=== PATIENT | female | born 1950 | race Caucasian/White ===

== ENCOUNTER 2021-08-11 07:42 | Inpatient (IN) | payer MEDICARE, OTHER ==
[2021-08-11] MEDS ORDERED: NA CHLORIDE 0.9% 1,000 ML ONE (07:59)
[2021-08-11 08:30] LABS: Absolute Lymphocytes (CBC) 0.5 K/uL (0.7-4.9); Hematocrit 45.8 % (36.0-45.0); Lymphocytes % 4.2 % (15.3-44.8); MPV 7.4 fL (7.6-11.3)
[2021-08-11 08:40] LABS: Albumin 3.2 g/dL (3.4-5.0); Bilirubin Total 0.8 mg/dL (0.2-1.0); Protein, Total 7.5 g/dL (6.4-8.2)
[2021-08-11 08:41] LABS: Potassium 2.9 mmol/L (3.5-5.1)
[2021-08-11] MEDS ORDERED: HYDRALAZINE HCL 20 MG/ML VIAL ONE ×2 (08:41→12:20)
--- NOTE | 2021-08-11 09:07 | RAD REPORT ---
EXAM DESCRIPTION: CT - Head Brain Wo Cont - 08/11/2021 8:59 am CLINICAL HISTORY: CONFUSED COMPARISON: No comparisons TECHNIQUE: Axial 5 mm thick images of the head were obtained without IV contrast. All CT scans are performed using dose optimization technique as appropriate and may include automated exposure control or mA/KV adjustment according to patient size. FINDINGS: No intracranial hemorrhage is present. No acute cortical based infarction is seen. There i s no cortical edema or sulcal effacement seen. Patient has underlying mild atrophy for age. Ventricle s are in proportion to the amount of volume loss. No abnormal extra-axial fluid collections. Chronic ischemic changes seen in the cerebral white matter and basal ganglia. Slightly more pronounced dimini shed attenuation is present in the posterolateral aspect of the lentiform nucleus and external capsul e on the left. Thalamus chronic ischemic changes evident. Mastoid air cells and visualized portions of the paranasal sinuses are clear. No acute bony findings. Patient has normal variant hyperostosis frontalis interna. No globe or orbita l content abnormality seen. IMPRESSION: No intracranial hemorrhage identified. No acute infarction at the cortical level identif iable. Patient has chronic ischemic change in the cerebral white matter, basal ganglia and thalamic tissues. Chronic ischemic changes can mask nonhemorrhagic acute infarction. MR brain followup can be obtained if there is ongoing concern for acute ischemia.
[2021-08-11] MEDS ORDERED: KCL IV ONE (09:15)
--- NOTE | 2021-08-11 09:16 | RAD REPORT ---
EXAM DESCRIPTION: CT - Abdomen Pelvis W Contrast - 08/11/2021 8:59 am CLINICAL HISTORY: ABD PAIN COMPARISON: No comparisons TECHNIQUE: Biphasic, helical CT imaging of the abdomen and pelvis was performed following 100 ml non -ionic IV contrast. No oral contrast administered. All CT scans are performed using dose optimization technique as appropriate and may include automated exposure control or mA/KV adjustment according to patient size. FINDINGS: Bilateral breast implants are in place with dense calcifications of the fibrous capsule. B oth implants show rupture findings contained by the fibrous capsule. No acute lung parenchymal proces s. No pneumothorax or pleural effusion. No pericardial effusion. The liver, spleen, and pancreas show no suspicious findings. Gallbladder is absent. No abnormal bilia ry tree dilatation. Renal function is symmetric. Areas of cortical thinning are present. The slight heterogeneity of the cortical tissues believed to be. Age related parenchymal volume loss. Given the right flank pain hist ory, the possibility of right-sided pyelonephritis cannot be excluded. There is no perinephric strand ing. No hydronephrosis or obstructing calculus identifiable. No solid mass lesion of either kidney. M ostly contracted urinary bladder shows no gross abnormality. Right adrenal gland is unremarkable. A 2 centimeter low-density mass of the left adrenal gland shows adenoma characteristics. A small atrophi c uterus is present. No suspicious ovarian finding. Small hiatal hernia is present. Surgical clips are present near the GE junction and there are postsur gical changes to the stomach. Fluid-filled stomach is present. No gastric wall thickening or gastric wall mass identifiable. Duodenum is unremarkable. The proximal most loops of jejunum show significant circumferential wall thickening and edema. A mass lesion is not identified. Distal jejunum and ileum show no suspicious findings. Gallbladder is absent by history. Patient has mild sigmoid diverticulos is without diverticulitis. Moderate stool volume is present throughout most of the colon. A primary c olon process is not identified. Small amount of free fluid is present in the dependent portion the pelvis likely reactive fluid from the jejunum process. No free air or pneumatosis. No mass or bulky lymphadenopathy. Severe bilateral hip joint degenerative changes are present. Degenerative changes are present through out the spine. No pathologic bone process seen. Mild wedge compression of L1 is present probably care consultant nba. IMPRESSION: Prominent circumferential wall thickening of the proximal jejunum. No focal mass lesion , obstruction, pneumatosis or other emergent finding. Jejunum findings are nonspecific and may represent a nonspecific ileitis or inflammatory bowel proces s. Heterogeneity of the renal parenchymal more prominent on the right. This is believed to be age relate d cortical thinning rather than pyelonephritis. Correlation can be made with any UA abnormality. No c ystitis findings.
[2021-08-11 09:31] LABS: Urine Blood Trace-intact (Negative); Urine Glucose 2+ (Negative); Urine Protein 1+ (Negative)
[2021-08-11 10:02] LABS: Urine Bacteria 20-50 /HPF (<20); Urine RBC <5 /HPF (NONE SEEN)
[2021-08-11] MEDS ORDERED: CEFTRIAXONE 1000 MG/VIAL ONE (10:05)
[2021-08-11 10:49] LABS: Blood Morphology Comment NOT SEEN (NOT SEEN); Platelet Estimate ADEQ; White Blood Cell Scan OK (OK)
--- NOTE | 2021-08-11 10:50 | EDPHYS ---
Physician Documentation [facility] Name: Tana Aguilar Age: 70 yrs Sex: Female : 1950 Arrival Date: 08/11/2021 Time: 07:47 Bed 5 Private MD: ED Physician Estela Varela HPI: 08/11 10:47 This 70 yrs old Female presents to ER via Wheelchair with complaints of Urinary ma2 Problem, confusion, Weakness. 10:47 Onset: The symptoms/episode began/occurred gradually, 2 day(s) ago. Associated signs ma2 and symptoms: Pertinent negatives: dizziness, nausea, paresthesias, seizure, loss of vision, weakness. Severity of symptoms: At their worst the symptoms were mild in the emergency department the symptoms are unchanged. Current symptoms: confusion. Historical: - Allergies: 08:09 No Known Allergies; ll1 - Home Meds: 14:45 Eliquis oral [Active]; Cymbalta oral [Active]; Ambien Oral [Active]; levothyroxine oral vg1 [Active]; Hydrocodone-Acetaminophen Oral [Active]; - PMHx: 08:00 Hypertensive disorder; Diabetes mellitus; ll1 08:09 A fib; ll1 - PSHx: 08:09 B knee SX; R ankle SX; ll1 - Immunization history:: Client reports receiving the 2nd dose of the Covid vaccine. - Social history:: Smoking status: Patient denies any tobacco usage or history of. - Family history:: not pertinent. ROS: 10:47 Constitutional: Negative for fever, chills, and weight loss, Eyes: Negative for injury, ma2 pain, redness, and discharge. 10:47 All other systems are negative. Exam: 10:47 Constitutional: This is a well developed, well nourished patient who is awake, alert, ma2 and in no acute distress. ENT: Nares patent. No nasal discharge, no septal abnormalities noted. Tympanic membranes are normal and external auditory canals are clear. Oropharynx with no redness, swelling, or masses, exudates, or evidence of obstruction, uvula midline. Mucous membranes moist. Neck: Trachea midline, no thyromegaly or masses palpated, and no cervical lymphadenopathy. Supple, full range of motion without nuchal rigidity, or vertebral point tenderness. No Meningismus. Chest/axilla: Normal chest wall appearance and motion. Nontender with no deformity. No lesions are appreciated. Cardiovascular: Regular rate and rhythm with a normal S1 and S2. No gallops, murmurs, or rubs. Normal PMI, no JVD. No pulse deficits. Respiratory: Lungs have equal breath sounds bilaterally, clear to auscultation and percussion. No rales, rhonchi or wheezes noted. No increased work of breathing, no retractions or nasal flaring. Abdomen/GI: Soft, non-tender, with normal bowel sounds. No distension or tympany. No guarding or rebound. No evidence of tenderness throughout. Back: No spinal tenderness. No costovertebral tenderness. Full range of motion. Skin: Warm, dry with normal turgor. Normal color with no rashes, no lesions, and no evidence of cellulitis. MS/ Extremity: Pulses equal, no cyanosis. Neurovascular intact. Full, normal range of motion. Neuro: Awake and alert, GCS 15, oriented to person, place, time, and situation. Cranial nerves II-XII grossly intact. Motor strength 5/5 in all extremities. Sensory grossly intact. Cerebellar exam normal. Normal gait. Vital Signs: 08:00 BP 194 / 116; Pulse 82; Resp 18; Temp 97.3; Pulse Ox 100% ; ll1 08:00 BP 206 / 105; Pulse 70; Resp 17; Pulse Ox 100% ; vg1 09:00 BP 164 / 51; Pulse 83; Resp 17; Pulse Ox 100% ; vg1 09:30 BP 165 / 52; Pulse 87; Resp 16; Pulse Ox 100% ; vg1 10:15 BP 176 / 58; Pulse 83; Resp 16; Pulse Ox 100% ; vg1 11:00 BP 190 / 77; Pulse 81; Resp 16; Pulse Ox 100% on R/A; vg1 12:00 BP 197 / 97; Pulse 80; Resp 16; Pulse Ox 100% on R/A; vg1 12:49 BP 159 / 62; Pulse 90; Resp 16; Pulse Ox 100% ; vg1 14:59 Weight 74.84 kg; vg1 19:45 BP 162 / 60; Pulse 81; Resp 16; Temp 98.4(O); Pulse Ox 100% on R/A; Pain 0/10; st1 MDM: 08:00 Patient medically screened. ma2 10:47 Data reviewed: vital signs, nurses notes, EMS record. Test interpretation: by ED tx2 physician or midlevel provider: ECG, plain radiologic studies. Counseling: I had a detailed discussion with the patient and/or guardian regarding: the historical points, exam findings, and any diagnostic results supporting the discharge/admit diagnosis, the presence of at least one elevated blood pressure reading (>120/80) during this emergency department visit, the need for outpatient follow up. Counseling: I had a detailed discussion with the patient and/or guardian regarding: the need for further work-up and treatment in the hospital. Response to treatment: the patient's symptoms have mildly improved after treatment, the patient's symptoms have markedly improved after treatment. 08/11 07:49 Order name: CBC with Diff [facility] 08/11 07:49 Order name: CMP; Complete Time: 08:49 [facility] 08/11 07:49 Order name: Lipase; Complete Time: 08:49 [facility] 08/11 07:49 Order name: Urine Microscopic Only; Complete Time: 10:38 [facility] 08/11 08:36 Order name: SARS-COV-2 RT PCR (Document "Date of Onset" if Symptomatic); Complete Time: [facility] 10:38 08/11 09:31 Order name: Urine Dipstick-Ancillary; Complete Time: 09:39 [facility] 08/11 08:07 Order name: CT Head Brain wo Cont; Complete Time: 09:17 [facility] 08/11 08:07 Order name: CT Abd/Pelvis - IV Contrast Only; Complete Time: 09:17 [facility] 08/11 10:03 Order name: Urine Culture [facility] 08/11 10:49 Order name: CBC Smear Scan [facility] 08/11 11:43 Order name: Lactate [facility] 08/11 11:56 Order name: Blood Culture [facility] 08/11 11:56 Order name: Hemoglobin A1c [facility] 08/11 17:15 Order name: MRI [facility] 08/11 07:49 Order name: IV Saline Lock; Complete Time: 08:16 [facility] 08/11 07:49 Order name: Labs collected and sent; Complete Time: 08:16 [facility] 08/11 07:49 Order name: Urine Dipstick-Ancillary (obtain specimen); Complete Time: 09:31 [facility] 08/11 11:05 Order name: Diet Heart Healthy; Complete Time: 11:05 vg1 Administered Medications: 08:16 Drug: NS 0.9% 1000 ml Route: IV; Rate: 1 bolus; Site: right antecubital; vg1 11:00 Follow up: IV Status: Completed infusion; IV Intake: 1000ml vg1 08:40 Drug: hydrALAZINE 10 mg Route: IVP; Site: right antecubital; vg1 09:27 Follow up: Response: No adverse reaction; Blood pressure is lowered vg1 09:26 Drug: Potassium Chloride 10 mEq Route: IV; Rate: calculated rate; Site: right vg1 antecubital; 11:30 Follow up: IV Status: Completed infusion; IV Intake: 50ml vg1 10:17 Drug: Rocephin (cefTRIAXone) 1 grams Route: IV; Rate: calculated rate; Site: right vg1 antecubital; 11:05 Follow up: Response: No adverse reaction; IV Status: Completed infusion vg1 12:19 Drug: hydrALAZINE 10 mg Route: IVP; Site: right antecubital; vg1 14:48 Follow up: Response: No adverse reaction; Blood pressure is lowered vg1 Disposition Summary: 08/11/21 10:49 Hospitalization Ordered Hospitalization Status: Observation ma2 Provider: Prince karissa Dumont Condition: Stable ma2 Problem: new ma2 Symptoms: are unchanged ma2 Bed/Room Type: Standard [facility] Location: Telemetry/MedSurg (observation)(08/11/21 18:30) eb Room Assignment: [facility](08/11/21 18:30) eb Diagnosis - UTI/ Urinary tract infection, site not specified ma2 - Altered mental status, unspecified ma2 Forms: - Medication Reconciliation Form ma2 - SBAR form ma2 Signatures: Dispatcher [employer] Tanya Branham RN RN aa5 sEtela Varela MD MD ma2 Bree Alejandro Victoria, RN RN vg1 Senait Menendez RN RN ll1 Corrections: (The following items were deleted from the chart) 14:26 10:49 Telemetry/MedSurg (observation) ma2 aa5 14:26 10:49 ma2 aa5 18:30 14:26 [facility] ER HOLD aa5 eb 18:30 14:26 ERHOLD- aa5 eb 18:30 18:30 204 eb eb
--- NOTE | 2021-08-11 10:50 | ER ---
Nurse's Notes [facility] Name: Tana Aguilar Age: 70 yrs Sex: Female : 1950 Arrival Date: 08/11/2021 Time: 07:47 Bed 5 Private MD: Diagnosis: UTI/ Urinary tract infection, site not specified;Altered mental status, unspecified Presentation: 08/11 08:00 Chief complaint: Patient states: Confusion started Saturday. Feels weak, tired, sweaty at ll1 times since. No fever. R sided back pain so she thought she might have kidney infection. Coronavirus screen: Vaccine status: Patient reports receiving the 2nd dose of the covid vaccine. Client denies travel out of the [place] in the last 14 days. fatigue, Client presents with at least one sign or symptom that may indicate coronavirus-19. Standard/surgical mask placed on the client. Ebola Screen: Patient denies travel to an Ebola-affected area in the 21 days before illness onset. No acute neurological deficit is noted. Initial Sepsis Screen: Does the patient meet any 2 criteria? No. Patient's initial sepsis screen is negative. Does the patient have a suspected source of infection? Yes: Dysuria/Frequency/Urgency/UTI. Risk Assessment: Do you want to hurt yourself or someone else? Patient reports no desire to harm self or others. Onset of symptoms was August 06, 2021. 08:00 Method Of Arrival: Wheelchair ll1 08:00 Acuity: NEREYDA 3 ll1 Triage Assessment: 08:00 The onset of the patients symptoms was more than six hours ago. General: Appears ill, ll1 Behavior is calm, cooperative, appropriate for age. Pain: Complains of pain in R back Quality of pain is described as aching. Neuro: Reports confusion since Saturday. : Reports pain in right in lower back. Stroke Activation: Symptom onset > 6 hours Physician: Stroke Attending; Name: ; Notified At: ; Arrived At: Physician: Chief Stroke Resident; Name: ; Notified At: ; Arrived At: Physician: Stroke Resident; Name: ; Notified At: ; Arrived At: Physician: ED Attending; Name: ; Notified At: ; Arrived At: Physician: ED Resident; Name: ; Notified At: ; Arrived At: Historical: - Allergies: 08:09 No Known Allergies; ll1 - Home Meds: 14:45 Eliquis oral [Active]; Cymbalta oral [Active]; Ambien Oral [Active]; levothyroxine oral vg1 [Active]; Hydrocodone-Acetaminophen Oral [Active]; - PMHx: 08:00 Hypertensive disorder; Diabetes mellitus; ll1 08:09 A fib; ll1 - PSHx: 08:09 B knee SX; R ankle SX; ll1 - Immunization history:: Client reports receiving the 2nd dose of the Covid vaccine. - Social history:: Smoking status: Patient denies any tobacco usage or history of. - Family history:: not pertinent. Screenin:28 Abuse screen: Denies threats or abuse. Nutritional screening: No deficits noted. vg1 Tuberculosis screening: No symptoms or risk factors identified. Fall Risk No fall in past 12 months (0 pts). No secondary diagnosis (0 pts). IV access (20 points). Ambulatory Aid- None/Bed Rest/Nurse Assist (0 pts). Gait- Normal/Bed Rest/Wheelchair (0 pts) Mental Status- Oriented to own ability (0 pts). Total Isidro Fall Scale indicates No Risk (0-24 pts). Assessment: 07:55 General: Appears in no apparent distress. comfortable, Behavior is calm, cooperative. vg1 Pain: Complains of pain in Right flank Pain currently is 5 out of 10 on a pain scale. Pain began SaturdayAugust 06. Neuro: Level of Consciousness is awake, alert, obeys commands, Oriented to person, place, time, situation. Cardiovascular: Patient's skin is warm and dry. Respiratory: Airway is patent Respiratory effort is even, unlabored. GI: No signs and/or symptoms were reported involving the gastrointestinal system. : Reports urinary frequency, Denies burning with urination. EENT: No signs and/or symptoms were reported regarding the EENT system. Derm: Skin is intact, is healthy with good turgor. Musculoskeletal: Circulation, motion, and sensation intact. 09:32 Reassessment: Patient appears in no apparent distress at this time. No changes from vg1 previously documented assessment. Patient and/or family updated on plan of care and expected duration. Pain level reassessed. Patient is alert, oriented x 3, equal unlabored respirations, skin warm/dry/pink. 10:27 Reassessment: Patient appears in no apparent distress at this time. No changes from vg1 previously documented assessment. Patient and/or family updated on plan of care and expected duration. Pain level reassessed. Patient is alert, oriented x 3, equal unlabored respirations, skin warm/dry/pink. 12:14 Reassessment: Received VO from Dr Varela to administer Hydralazine 10 mg IVP x1. vg1 Vital Signs: 08:00 BP 194 / 116; Pulse 82; Resp 18; Temp 97.3; Pulse Ox 100% ; ll1 08:00 BP 206 / 105; Pulse 70; Resp 17; Pulse Ox 100% ; vg1 09:00 BP 164 / 51; Pulse 83; Resp 17; Pulse Ox 100% ; vg1 09:30 BP 165 / 52; Pulse 87; Resp 16; Pulse Ox 100% ; vg1 10:15 BP 176 / 58; Pulse 83; Resp 16; Pulse Ox 100% ; vg1 11:00 BP 190 / 77; Pulse 81; Resp 16; Pulse Ox 100% on R/A; vg1 12:00 BP 197 / 97; Pulse 80; Resp 16; Pulse Ox 100% on R/A; vg1 12:49 BP 159 / 62; Pulse 90; Resp 16; Pulse Ox 100% ; vg1 14:59 Weight 74.84 kg; vg1 19:45 BP 162 / 60; Pulse 81; Resp 16; Temp 98.4(O); Pulse Ox 100% on R/A; Pain 0/10; st1 ED Course: 07:47 Patient arrived in ED. as 07:48 Estela Varela MD is Attending Physician. hi2 07:54 Tana Taylor, RN is Primary Nurse. vg1 07:54 Arm band placed on Patient placed in an exam room, on a stretcher. ll1 08:02 Triage completed. ll1 08:13 Initial lab(s) drawn, by ut, sent to lab. Inserted saline lock: 20 gauge in right vg1 antecubital area, using aseptic technique. Blood collected. 08:29 Patient has correct armband on for positive identification. Bed in low position. Call [facility] light in reach. Side rails up X 1. Adult w/ patient. 08:59 CT Head Brain wo Cont In Process Unspecified. EDMS 08:59 CT Abd/Pelvis - IV Contrast Only In Process Unspecified. EDMS 10:49 Prince Dumont MD is Hospitalizing Provider. ma2 11:18 Pillow given. em1 12:20 Lactate Sent. em1 12:20 First set of blood cultures drawn by me. em1 14:48 No provider procedures requiring assistance completed. Patient admitted, IV remains in vg1 place. 19:11 Primary Nurse role handed off by Tana Taylor RN mw2 19:38 Makenna Fermin RN is Primary Nurse. st1 19:38 the charge nurse states there was no nurse assigned to the room. st1 20:22 Report was called to SERA King. All questions and concerns have been addressed. st1 Administered Medications: 08:16 Drug: NS 0.9% 1000 ml Route: IV; Rate: 1 bolus; Site: right antecubital; vg1 11:00 Follow up: IV Status: Completed infusion; IV Intake: 1000ml vg1 08:40 Drug: hydrALAZINE 10 mg Route: IVP; Site: right antecubital; vg1 09:27 Follow up: Response: No adverse reaction; Blood pressure is lowered vg1 09:26 Drug: Potassium Chloride 10 mEq Route: IV; Rate: calculated rate; Site: right vg1 antecubital; 11:30 Follow up: IV Status: Completed infusion; IV Intake: 50ml vg1 10:17 Drug: Rocephin (cefTRIAXone) 1 grams Route: IV; Rate: calculated rate; Site: right vg1 antecubital; 11:05 Follow up: Response: No adverse reaction; IV Status: Completed infusion vg1 12:19 Drug: hydrALAZINE 10 mg Route: IVP; Site: right antecubital; vg1 14:48 Follow up: Response: No adverse reaction; Blood pressure is lowered vg1 Intake: 11:00 IV: 1000ml; Total: 1000ml. vg1 11:30 IV: 50ml; Total: 1050ml. vg1 Outcome: 10:49 Decision to Hospitalize by Provider. ma2 14:47 Admitted to ER Hold. Please see [facility] for further documentation. vg1 14:47 Condition: good 14:47 Instructed on the need for admit. 20:48 Patient left the ED. bb Signatures: Dispatcher [employer] Delfina Travis Brenda, RN Lennox Ellison em1 Estela Varela MD MD ma2 Julito, Shemar 2 Tana Taylor RN RN vg1 Senait Menendez RN RN ll1 Makenna Fermin RN RN st1 Corrections: (The following items were deleted from the chart) 12:29 12:29 Lactate drawn and sent. em1 em1 19:48 19:45 Pulse 81bpm; Resp 16bpm; Pulse Ox 100% RA; Temp 98.4F Oral; Pain 0/10; st1 st1
--- NOTE | 2021-08-11 11:51 | P.HP ---
Certification for Inpatient Patient admitted to: Inpatient With expected LOS: >2 Midnights Practitioner: I am a practitioner with admitting privileges, knowledge of patient current condition, hospital course, and medical plan of care. Services: Services provided to patient in accordance with Admission requirements found in Title 42 Section 412.3 of the Code of Federal Regulations Patient History Date of Service: 08/11/21 Reason for admission: Generalized weakness History of Present Illness: Patient is a 70 year old female with a PMH of HTN, Atrial fibrillation on eliquis. She presents to the ER for evaluation of generalized weakness and confusion for the past 2 days. She is visiting her son from [place], [place] and has been here for the past 3 months. She reports having dysuria during this time. She has been compliant with her medications. She arrived in the ER severely hypertensive with SBP in 200s. She required IV hydralazine. Workup here is suggestive of UTI. Physical Examination - Physical Exam General: Cooperative, Other (lethargic) HEENT: Atraumatic Respiratory: Clear to auscultation bilaterally, Normal air movement Cardiovascular: Normal S1 S2, Edema, Irregular heart rate/rhythm Gastrointestinal: Soft and benign, Non-distended, No tenderness Neurological: Normal speech, Normal affect - Studies Laboratory Data (last 24 hrs) 08/11/21 08:13: Sodium 133 L, Potassium 2.9 L*, BUN 21 H, Creatinine 1.36 H, Glucose 329 H, Total Bilirubin 0.8, AST 6 L, ALT 16, Alkaline Phosphatase 137 H, Lipase 60 L 08/11/21 08:13: WBC 12.50 H, Hgb 15.1 H, Hct 45.8 H, Plt Count 420 H Assessment and Plan - Problems (Diagnosis) (1) UTI (urinary tract infection) Current Visit: Yes Status: Acute (2) Hypertensive urgency Current Visit: Yes Status: Acute (3) Atrial fibrillation Current Visit: Yes Status: Acute (4) Generalized weakness Current Visit: Yes Status: Acute - Advance Directives Does patient have a Living Will: No Does patient have a Durable POA for Healthcare: No Physician Review Additional Text: Assessment Patient is a 70 year old female currently being admitted for UTI after she presented with generalized weakness. Her urine analysis was positive. She was severely hypertensive on presentation and required IV hydralazine. UTI Hypertensive urgency Acute encephalopathy Atrial fibrillation Generalized weakness PLAN: Admit inpatient with telemetry MRI brain to r/o PRESS vs CVA Will obtain a TTE Continue Ceftriaxone for UTI Start LR infusion Follow up urine cultures Start insulin sliding scale Follow up HbA1c She will need PT/OT BP control Will resume home medications once reconciled
[2021-08-11] MEDS ORDERED: D50W 25 GM/50 ML SYRINGE IV PRN (15:56)
[2021-08-11] MEDS ORDERED: GLUCAGON 1 MG/VIAL IM PRN (15:56)
[2021-08-11] MEDS: Ringers Lactate 1,000 ML IV SCH ×2 (15:56→23:56)
[2021-08-11] MEDS ORDERED: D10W 125 ML IV PRN (16:00)
[2021-08-11] MEDS: INSULIN -REGULAR HUMAN 50 UNIT/0.5 ML ML SQ SCH ×2 (16:30→21:00)
--- NOTE | 2021-08-11 17:14 | RAD REPORT ---
EXAM DESCRIPTION: MRI - Brain Wo Cont - 08/11/2021 4:53 pm CLINICAL HISTORY: Acute encephalopathy Headache, drowsiness COMPARISON: Head Brain Wo Cont dated 08/11/2021 TECHNIQUE: Multi-sequence, multiplanar MR imaging of the brain was performed without contrast. FINDINGS: No intracranial hemorrhage, hydrocephalus or extra-axial fluid collections.Mild brain atro phy with mild periventricular and deep white matter chronic microvascular ischemic changes. No edema or shift of midline structures. No findings to suspect brain mass. DWI is negative for acute CVA. Midline structures are normally formed. Mastoid air cells and paranasal sinuses are clear. IMPRESSION: No acute or aggressive intracranial abnormalities.
[2021-08-11 22:10] VITALS: BMI 25.8
[2021-08-11] MEDS ORDERED: ZOLPIDEM TARTRATE 5 MG TABLET PO PRN (23:29)
[2021-08-11] MEDS: HYDRALAZINE HCL 20 MG/ML VIAL IV PRN (23:46)
[2021-08-12 06:52] LABS: Absolute Lymphocytes (CBC) 2.2 K/uL (0.7-4.9); Hematocrit 40.9 % (36.0-45.0); Lymphocytes % 24.8 % (15.3-44.8); MPV 7.3 fL (7.6-11.3)
[2021-08-12 07:14] LABS: Potassium 2.8 mmol/L (3.5-5.1)
[2021-08-12] MEDS: INSULIN -REGULAR HUMAN 50 UNIT/0.5 ML ML SQ SCH ×4 (07:30→21:00)
[2021-08-12] MEDS: Ringers Lactate 1,000 ML IV SCH ×2 (07:56)
[2021-08-12] MEDS ORDERED: CEFTRIAXONE 1000 MG/VIAL ONE (08:13)
--- NOTE | 2021-08-12 08:26 | P.PN ---
Subjective Date of Service: 08/12/21 Chief Complaint: Generalized weakness Subjective: Improving (Persistenlty hypokalemic, however. BP is still uncontrolled) Physical Examination - Vital Signs Temperature: 97.3 F Blood Pressure: 180/86 Pulse: 94 Respirations: 19 Pulse Ox (%): 97 - Physical Exam General: Alert, In no apparent distress, Cooperative HEENT: Atraumatic, Normocephalic Respiratory: Clear to auscultation bilaterally, Normal air movement Cardiovascular: Normal S1 S2, Irregular heart rate/rhythm Gastrointestinal: Soft and benign, Non-distended, No tenderness Neurological: Normal speech, Normal affect - Studies Laboratory Data (last 24 hrs) 08/11/21 08:13: Sodium 133 L, Potassium 2.9 L*, BUN 21 H, Creatinine 1.36 H, Glucose 329 H, Total Bilirubin 0.8, AST 6 L, ALT 16, Alkaline Phosphatase 137 H, Lipase 60 L 08/11/21 08:13: WBC 12.50 H, Hgb 15.1 H, Hct 45.8 H, Plt Count 420 H Assessment And Plan - Current Problems (Diagnosis) (1) UTI (urinary tract infection) Current Visit: Yes Status: Acute (2) Hypertensive urgency Current Visit: Yes Status: Acute (3) Atrial fibrillation Current Visit: Yes Status: Acute (4) Generalized weakness Current Visit: Yes Status: Acute Physician Review Additional Text: Assessment Patient is a 70 year old female currently being admitted for UTI after she presented with generalized weakness. Her urine analysis was positive. She was severely hypertensive on presentation and required IV hydralazine. UTI Bacteremia Hypokalemia Hypertensive urgency Acute encephalopathy Atrial fibrillation Generalized weakness PLAN: Hypokalemia possibly contributing to weakness Will replace with 80 mEq MRI brain negative for PRESS vs CVA Blood cx positive for G+cocci in clusters Repeat blood cx sent Follow up TTE Continue Ceftriaxone for UTI. Follow up Ucx DC IVF Continue insulin sliding scale PT/OT before discharge BP control DVT ppx Will resume home medications once reconciled 08/12/21 16:15
[2021-08-12] MEDS: METOPROLOL TAR 25 MG TAB PO SCH ×2 (08:52→18:08)
[2021-08-12 08:53] LABS: Magnesium 1.8 mg/dL (1.8-2.4); T3 Free 1.81 pg/mL (2.18-3.98)
[2021-08-12] MEDS: CEFTRIAXONE 1,000 MG in NA CHLORIDE 0.9% 50 ML IVPB SCH (08:53)
[2021-08-12] MEDS: HYDRALAZINE HCL 20 MG/ML VIAL IV PRN (08:53)
[2021-08-12] MEDS: KCL 20 MEQ/100 mL IVPB 20 MEQ/100 ML BAG IV SCH ×2 (08:53→12:16)
[2021-08-12 08:58] LABS: Thyroid Stimulating Hormone 5.38 uIU/mL (0.360-3.740)
[2021-08-12] MEDS ORDERED: POTASSIUM CL SA 10 MEQ TAB PO ONE (09:00)
[2021-08-12] MEDS ORDERED: NIFEDIPINE XL 30 MG TABLET PO SCH (09:00)
[2021-08-12] MEDS: HYDROCODONE/APAP 10/325 TAB PO SCH (22:21)
[2021-08-13] MEDS: ZOLPIDEM TARTRATE 10 MG TABLET PO SCH ×2 (00:28→20:31)
[2021-08-13] MEDS: METOPROLOL TAR 25 MG TAB PO SCH ×2 (06:07→17:21)
[2021-08-13] MEDS: LEVOTHYROXINE SOD 0.075 MG TAB PO SCH (06:07)
[2021-08-13 06:27] LABS: Absolute Lymphocytes (CBC) 2.4 K/uL (0.7-4.9); Hematocrit 40.3 % (36.0-45.0); Lymphocytes % 28.3 % (15.3-44.8); MPV 7.3 fL (7.6-11.3); RBC Red Blood Cell Count 4.47 M/uL (3.86-4.86)
[2021-08-13 06:45] LABS: Potassium 3.5 mmol/L (3.5-5.1)
[2021-08-13] MEDS: INSULIN -REGULAR HUMAN 50 UNIT/0.5 ML ML SQ SCH ×4 (07:30→21:00)
[2021-08-13] MEDS: NIFEDIPINE XL 30 MG TABLET PO SCH ×2 (08:12→08:23)
[2021-08-13] MEDS: DULOXETINE 30 MG CAP PO SCH (08:13)
[2021-08-13] MEDS: HYDROCODONE/APAP 10/325 TAB PO SCH (08:13)
[2021-08-13] MEDS: CEFTRIAXONE 1,000 MG in NA CHLORIDE 0.9% 50 ML IVPB SCH (08:14)
[2021-08-13] MEDS: TIZANIDINE 4 MG TABLET PO SCH (08:14)
[2021-08-13] MEDS ORDERED: HOME MED 1 EA UNK (Tizanidine Hcl [Tizanidine Hcl] 2 MG Tablet) PO SCH (09:00)
[2021-08-13] MEDS ORDERED: hydroCHLOROthiazide 25 MG TAB PO SCH ×2 (09:00→15:00)
[2021-08-13] MEDS ORDERED: PNEUMOCOCCAL VACCINE 0.5 ML IMVAC ONE (09:00)
[2021-08-13] MEDS ORDERED: HOME MED 1 EA UNK (Duloxetine Hcl [Cymbalta] 60 MG Capsule.Dr) PO SCH (09:00)
--- NOTE | 2021-08-13 09:21 | P.PN ---
Subjective Date of Service: 08/13/21 Chief Complaint: Generalized weakness Subjective: Improving (Continues to be hypertensive, however.) Physical Examination - Vital Signs Temperature: 98.2 F Blood Pressure: 173/79 Pulse: 72 Respirations: 18 Pulse Ox (%): 96 - Physical Exam General: Alert, In no apparent distress, Cooperative HEENT: Atraumatic, Normocephalic Respiratory: Normal air movement Cardiovascular: Normal S1 S2, Irregular heart rate/rhythm Gastrointestinal: Soft and benign, Non-distended Musculoskeletal: No clubbing, No swelling, No contractures, No erythema Neurological: Normal speech, Normal affect - Studies Microbiology Data (last 24 hrs): 08/11/21 09:28 Clean Catch Urine [place] Count - Final BETWEEN 10,000 & 100,000 CFU/ML 08/11/21 09:28 Clean Catch Urine - Final MIXED JOSHUA. Assessment And Plan - Current Problems (Diagnosis) (1) UTI (urinary tract infection) Current Visit: Yes Status: Acute (2) Hypertensive urgency Current Visit: Yes Status: Acute (3) Atrial fibrillation Current Visit: Yes Status: Acute (4) Generalized weakness Current Visit: Yes Status: Acute Physician Review Additional Text: Assessment Patient is a 70 year old female currently being admitted for UTI after she presented with generalized weakness. Her urine analysis was positive. She was severely hypertensive on presentation and required IV hydralazine. UTI Bacteremia Hypokalemia Hypertensive urgency Acute encephalopathy Atrial fibrillation Generalized weakness PLAN: Increase nifedipine to 60 mg daily Blood cx positive for G+cocci in clusters Repeat blood cx sent Follow up TTE Continue Ceftriaxone for bacteremia. Ucx negative. Continue insulin sliding scale PT/OT before discharge BP control DVT ppx
[2021-08-13] MEDS ORDERED: hydroCHLOROthiazide 25 MG TAB PO ONE (14:00)
[2021-08-13] MEDS ORDERED: HYDROCODONE/APAP 10/325 TAB PO ONE (21:42)
[2021-08-14] MEDS: LEVOTHYROXINE SOD 0.075 MG TAB PO SCH (05:59)
[2021-08-14] MEDS: METOPROLOL TAR 25 MG TAB PO SCH ×2 (06:00→17:31)
[2021-08-14 06:14] LABS: Absolute Lymphocytes (CBC) 2.6 K/uL (0.7-4.9); Hematocrit 39.1 % (36.0-45.0); Lymphocytes % 29.3 % (15.3-44.8); MPV 7.3 fL (7.6-11.3); RBC Red Blood Cell Count 4.37 M/uL (3.86-4.86)
[2021-08-14 06:28] LABS: Potassium 3.4 mmol/L (3.5-5.1)
[2021-08-14] MEDS: INSULIN -REGULAR HUMAN 50 UNIT/0.5 ML ML SQ SCH ×4 (07:30→21:00)
[2021-08-14] MEDS: DULOXETINE 30 MG CAP PO SCH (09:07)
[2021-08-14] MEDS: TIZANIDINE 4 MG TABLET PO SCH (09:07)
[2021-08-14] MEDS: HYDROCODONE/APAP 10/325 TAB PO SCH ×2 (09:08→22:18)
[2021-08-14] MEDS: NIFEDIPINE XL 30 MG TABLET PO SCH (09:08)
[2021-08-14] MEDS: hydroCHLOROthiazide 25 MG TAB PO SCH (09:08)
[2021-08-14] MEDS: CEFTRIAXONE 1,000 MG in NA CHLORIDE 0.9% 50 ML IVPB SCH (09:09)
[2021-08-15] MEDS: HYDRALAZINE HCL 20 MG/ML VIAL IV PRN (00:14)
[2021-08-15] MEDS: ZOLPIDEM TARTRATE 10 MG TABLET PO SCH (01:11)
[2021-08-15] MEDS: LEVOTHYROXINE SOD 0.075 MG TAB PO SCH (05:36)
[2021-08-15] MEDS: METOPROLOL TAR 25 MG TAB PO SCH ×2 (05:36→17:03)
[2021-08-15] MEDS ORDERED: HYDROCORTISONE SUC 100 MG INJ IV SCH (06:00)
[2021-08-15 06:02] LABS: Absolute Lymphocytes (CBC) 2.3 K/uL (0.7-4.9); Hematocrit 37.1 % (36.0-45.0); Lymphocytes % 26.5 % (15.3-44.8); MPV 7.4 fL (7.6-11.3); RBC Red Blood Cell Count 4.17 M/uL (3.86-4.86)
[2021-08-15 06:19] LABS: Magnesium 1.9 mg/dL (1.8-2.4); Potassium 3.4 mmol/L (3.5-5.1)
[2021-08-15 06:30] LABS: Thyroid Stimulating Hormone 12.9 uIU/mL (0.360-3.740)
[2021-08-15] MEDS: INSULIN -REGULAR HUMAN 50 UNIT/0.5 ML ML SQ SCH ×4 (07:30→20:58)
--- NOTE | 2021-08-15 07:43 | ECHO ---
HEIGHT: 5 ft 8 in WEIGHT: 170 lb 0 oz DATE OF STUDY: 08/14/[address]: Prince Emi Dumont MD 2-DIMENSIONAL: YES M.MODE: YES DOPPLER: YES COLOR FLOW: YES TDS: YES PORTABLE: NO DEFINITY: NO BUBBLE STUDY: NO DIAGNOSIS: ATRIAL FIBRILLATION CARDIAC HISTORY: CATHERIZATION: SURGERY: PROSTHETIC VALVE: PACEMAKER: MEASUREMENTS (cm) DIASTOLIC (NORMALS) SYSTOLIC (NORMALS) IVSd 1.0 (0.6-1.2) LA Diam 4.7 (1.9-4.0) LVEF 55-60% LVIDd 4.5 (3.5-5.7) LVIDs 2.6 (2.0-3.5) %FS 42% LVPWd 1.2 (0.6-1.2) Ao Diam 2.7 (2.0-3.7) 2 DIMENSIONAL ASSESSMENT: RIGHT ATRIUM: NORMAL LEFT ATRIUM: ENLARGED RIGHT VENTRICLE: NORMAL LEFT VENTRICLE: NORMAL TRICUSPID VALVE: NORMAL MITRAL VALVE: NORMAL PULMONIC VALVE: NORMAL AORTIC VALVE: PERICARDIAL EFFUSION: NONE AORTIC ROOT: NORMAL LEFT VENTRICULAR WALL MOTION: NORMAL DOPPLER/COLOR FLOW: SEE BELOW COMMENTS: NORMAL LEFT VENTRICULAR EJECTION FRACTION 55-60%. NORMAL WALL MOTION. ATRIAL FIBRILLATION. LEFT ATRIAL ENLARGEMENT. MILD AORTIC AND TRICUSPID REGURGITATION. TECHNOLOGIST: Lilibeth MCFADDEN
[2021-08-15] MEDS: CEFTRIAXONE 1,000 MG in NA CHLORIDE 0.9% 50 ML IVPB SCH (09:27)
[2021-08-15] MEDS: NIFEDIPINE XL 30 MG TABLET PO SCH (09:28)
[2021-08-15] MEDS: HYDROCODONE/APAP 10/325 TAB PO SCH ×3 (09:28→22:14)
[2021-08-15] MEDS: TIZANIDINE 4 MG TABLET PO SCH (09:29)
[2021-08-15] MEDS: DULOXETINE 30 MG CAP PO SCH (09:29)
[2021-08-15] MEDS: hydroCHLOROthiazide 25 MG TAB PO SCH (09:29)
[2021-08-16] MEDS: ZOLPIDEM TARTRATE 10 MG TABLET PO SCH ×2 (00:10→22:26)
[2021-08-16 05:17] LABS: Absolute Lymphocytes (CBC) 2.6 K/uL (0.7-4.9); Hematocrit 39.2 % (36.0-45.0); Lymphocytes % 30.3 % (15.3-44.8); MPV 6.9 fL (7.6-11.3); RBC Red Blood Cell Count 4.41 M/uL (3.86-4.86)
[2021-08-16] MEDS: LEVOTHYROXINE SOD 0.075 MG TAB PO SCH (05:35)
[2021-08-16] MEDS: METOPROLOL TAR 25 MG TAB PO SCH ×2 (05:35→17:13)
[2021-08-16] MEDS: INSULIN -REGULAR HUMAN 50 UNIT/0.5 ML ML SQ SCH ×4 (07:30→22:27)
--- NOTE | 2021-08-16 08:15 | P.PN ---
Date of Service: 08/14/21 Subjective Doing better; clinical symptoms improved. Physical Examination - Vital Signs reviewed - Physical Exam General: Alert, In no apparent distress, Cooperative Cardiovascular: Normal S1 S2, Irregular heart rate/rhythm Gastrointestinal: Soft and benign, Non-distended Musculoskeletal: No clubbing, No swelling, No contractures, No erythema Neurological: Normal speech, Normal affect Assessment And Plan - Current Problems (Diagnosis) (1) UTI (urinary tract infection) Current Visit: Yes Status: Acute (2) Hypertensive urgency Current Visit: Yes Status: Acute (3) Atrial fibrillation Current Visit: Yes Status: Acute (4) Generalized weakness Current Visit: Yes Status: Acute Physician Review Additional Text: Assessment: 1. UTI 2. Bacteremia 3. Hypokalemia 4. Hypertensive urgency 5. Acute encephalopathy 6. Atrial fibrillation 7. Generalized weakness PLAN: -Increase nifedipine to 60 mg daily -Blood culture positive for G. cocci in clusters -Repeat blood culture sent -TTE reviewed -Continue Ceftriaxone for bacteremia. Urine cultures negative. -Continue insulin sliding scale -PT/OT before discharge -BP control -DVT ppx
--- NOTE | 2021-08-16 08:16 | P.PN ---
Date of Service: 08/15/21 Subjective Pt improving; she is not really motivated to get out of bed and ambulate Physical Examination - Vital Signs reviewed - Physical Exam General: Alert, In no apparent distress, Cooperative Cardiovascular: Normal S1 S2, Irregular heart rate/rhythm Gastrointestinal: Soft and benign, Non-distended Musculoskeletal: No clubbing, No swelling, No contractures, No erythema Neurological: Normal speech, Normal affect Assessment And Plan - Current Problems (Diagnosis) (1) UTI (urinary tract infection) Current Visit: Yes Status: Acute (2) Hypertensive urgency Current Visit: Yes Status: Acute (3) Atrial fibrillation Current Visit: Yes Status: Acute (4) Generalized weakness Current Visit: Yes Status: Acute Physician Review Additional Text: Assessment: 1. UTI 2. Bacteremia 3. Hypokalemia 4. Hypertensive urgency 5. Acute encephalopathy 6. Atrial fibrillation 7. Generalized weakness PLAN: -Blood pressure stable. Rate controlled -Blood culture positive for G. cocci in clusters -Repeat blood culture sent -TTE reviewed -Continue Ceftriaxone for bacteremia. Urine cultures negative. -Continue insulin sliding scale -PT/OT before discharge -BP control -DVT ppx
[2021-08-16] MEDS: CEFTRIAXONE 1,000 MG in NA CHLORIDE 0.9% 50 ML IVPB SCH (08:49)
[2021-08-16] MEDS: DULOXETINE 30 MG CAP PO SCH (08:50)
[2021-08-16] MEDS: TIZANIDINE 4 MG TABLET PO SCH (08:51)
[2021-08-16] MEDS: HYDRALAZINE HCL 20 MG/ML VIAL IV PRN (08:51)
[2021-08-16] MEDS: HYDROCODONE/APAP 10/325 TAB PO SCH ×3 (08:51→22:26)
[2021-08-16] MEDS: hydroCHLOROthiazide 25 MG TAB PO SCH (08:52)
[2021-08-16] MEDS: NIFEDIPINE XL 30 MG TABLET PO SCH (08:52)
[2021-08-16] MEDS ORDERED: POTASSIUM 25 MEQ EFFERV TAB PO ONE (09:00)
[2021-08-17 04:16] LABS: Absolute Lymphocytes (CBC) 2.8 K/uL (0.7-4.9); Hematocrit 39.8 % (36.0-45.0); Lymphocytes % 26.5 % (15.3-44.8); MPV 7.3 fL (7.6-11.3); RBC Red Blood Cell Count 4.44 M/uL (3.86-4.86)
[2021-08-17 04:25] LABS: Potassium 3.5 mmol/L (3.5-5.1)
[2021-08-17 04:52] LABS: Blood Morphology Comment NOT SEEN (NOT SEEN); Platelet Estimate INCR; White Blood Cell Scan OK (OK)
[2021-08-17] MEDS: METOPROLOL TAR 25 MG TAB PO SCH (05:46)
[2021-08-17] MEDS: LEVOTHYROXINE SOD 0.075 MG TAB PO SCH (05:46)
[2021-08-17] MEDS ORDERED: POTASSIUM CL SA 10 MEQ TAB PO ONE (09:00)
--- NOTE | 2021-08-17 10:01 | P.PN ---
Date of Service: 08/16/21 Subjective Patient refused to work with physical therapy. I got patient out of bed patient was able to walk around the bed. She does have kyphosis and she normally leans over the walker. Patient will be admitted for further evaluation. Physical Examination - Vital Signs reviewed - Physical Exam General: Alert, In no apparent distress, Cooperative Cardiovascular: Normal S1 S2, Irregular heart rate/rhythm Gastrointestinal: Soft and benign, Non-distended Musculoskeletal: No clubbing, No swelling, No contractures, No erythema Neurological: Normal speech, Normal affect Assessment And Plan - Current Problems (Diagnosis) (1) UTI (urinary tract infection) Current Visit: Yes Status: Acute (2) Hypertensive urgency Current Visit: Yes Status: Acute (3) Atrial fibrillation Current Visit: Yes Status: Acute (4) Generalized weakness Current Visit: Yes Status: Acute Physician Review Additional Text: Assessment: 1. UTI 2. Bacteremia 3. Hypokalemia 4. Hypertensive urgency 5. Acute encephalopathy 6. Atrial fibrillation 7. Generalized weakness PLAN: -Blood pressure stable. Rate controlled -Blood culture positive for G. cocci in clusters; contamination -Repeat blood culture but are negative -TTE reviewed -Change to oral antibiotic therapy -Continue insulin sliding scale -PT/OT; strength is improving. -BP control -DVT ppx
--- NOTE | 2021-08-17 10:02 | P.DS ---
Discharge Date: 08/17/21 Disposition: ROUTINE DISCHARGE Discharge Condition: GOOD Reason for Admission: Generalized weakness Brief History of Present Illness: Patient is a 70 year old female with a PMH of HTN, Atrial fibrillation on eliquis. She presents to the ER for evaluation of generalized weakness and confusion for the past 2 days. She is visiting her son from [place], [place] and has been here for the past 3 months. She reports having dysuria during this time. She has been compliant with her medications. She arrived in the ER severely hypertensive with SBP in 200s. She required IV hydralazine. Workup here is suggestive of UTI. Hospital Course: Patient is doing better. She is planning on leaving to go out of town 1 week. She ambulated but she normally uses a walker. At this time, patient is stable for discharge. Vital Signs/Physical Exam: Temp Pulse Resp BP Pulse Ox 97.7 F 60 16 162/71 H 98 08/17/21 08:00 08/17/21 08:00 08/17/21 08:00 08/17/21 08:00 08/17/21 08:00 General: Alert, In no apparent distress, Oriented x3 Laboratory Data at Discharge: WBC 10.70 K/uL (4.3-10.9) D 08/17/21 04:00 Hgb 12.8 g/dL (12.0-15.0) 08/17/21 04:00 Hct 39.8 % (36.0-45.0) 08/17/21 04:00 Plt Count 505 K/uL (152-406) H 08/17/21 04:00 Sodium 137 mmol/L (136-145) 08/17/21 04:00 Potassium 3.5 mmol/L (3.5-5.1) 08/17/21 04:00 BUN 17 mg/dL (7-18) 08/17/21 04:00 Creatinine 1.09 mg/dL (0.55-1.3) 08/17/21 04:00 Glucose 86 mg/dL (74-106) 08/17/21 04:00 Magnesium 2.0 mg/dL (1.8-2.4) 08/17/21 04:00 Total Bilirubin 0.8 mg/dL (0.2-1.0) 08/11/21 08:13 AST 6 U/L (15-37) L 08/11/21 08:13 ALT 16 U/L (12-78) 08/11/21 08:13 Alkaline Phosphatase 137 U/L (45-117) H 08/11/21 08:13 Lipase 60 U/L (73-393) L 08/11/21 08:13 Home Medications: Duloxetine HCl [Cymbalta] 120 mg PO DAILY 08/12/21 Hydrocodone Bit/Acetaminophen [Hydrocodon-Acetaminophn 10-325] 10 - 325 mg PO TIDP PRN 08/12/21 Levothyroxine Sodium [Synthroid] 75 mcg PO DAILY 08/12/21 Tizanidine HCl 2 mg PO DAILY 08/12/21 Zolpidem Tartrate [Ambien] 10 mg PO DAILY 08/12/21 hydroCHLOROthiazide [Hydrochlorothiazide] 25 mg PO DAILY 08/12/21 Cefdinir [Omnicef] 300 mg PO BID #10 capsule 08/17/21 Metoprolol Tartrate [Lopressor*] 25 mg PO BID 6AM 6PM #60 tab 08/17/21 predniSONE [Deltasone] 20 mg PO DAILY #5 tab 08/17/21 New Medications: Metoprolol Tartrate [Lopressor*] 25 mg PO BID 6AM 6PM #60 tab Cefdinir [Omnicef] 300 mg PO BID #10 capsule predniSONE [Deltasone] 20 mg PO DAILY #5 tab Physician Discharge Instructions: -DC IV and DC home -Follow-up with PCP in 1 to 2 weeks -Follow-up with Cardiology in 1 to 2 weeks -Please call Dr. Ordaz at [phone] if any questions regarding hospital stay -Please call nursing station at [phone] if any nursing or medication questions -Return to the emergency room if symptoms worsen Diet: AHA Activity: Fall precautions Followup: NONE,NONE [Primary Care Provider] - Time spent managing pt's care (in minutes): 35
[2021-08-17] MEDS: DULOXETINE 30 MG CAP PO SCH (10:39)
[2021-08-17] MEDS: NIFEDIPINE XL 30 MG TABLET PO SCH (10:39)
[2021-08-17] MEDS: hydroCHLOROthiazide 25 MG TAB PO SCH (10:40)
[2021-08-17] MEDS: HYDROCODONE/APAP 10/325 TAB PO SCH ×2 (10:40→15:27)
[2021-08-17] MEDS: TIZANIDINE 4 MG TABLET PO SCH (10:41)
[2021-08-17] MEDS: CEFTRIAXONE 1,000 MG in NA CHLORIDE 0.9% 50 ML IVPB SCH (10:41)
[2021-08-17] MEDS: INSULIN -REGULAR HUMAN 50 UNIT/0.5 ML ML SQ SCH ×3 (10:41→16:30)
[2021-08-17 10:55] VITALS: O2SAT 98
[2021-08-17 13:52] VITALS: BP 127/81
[2021-08-17 18:14] VITALS: TEMP 97.1
[2021-08-18] MEDS ORDERED: NIFEDIPINE XL 60 MG TABLET PO SCH (09:00)
== END 2021-08-17 17:50 | disposition home or self-care (01) | DRG 689 ==
LOC: ER 07:42 → ERHOLD 12:23 → 2ND 19:54
PROVIDERS: ADMIT Internal Medicine; ATTEND Internal Medicine
DX: N39.0 Urinary tract infection, site not specified (principal); G92.8 Other toxic encephalopathy; R78.81 Bacteremia; I10 Essential (primary) hypertension; I48.91 Unspecified atrial fibrillation; Z79.01 Long term (current) use of anticoagulants; I16.0 Hypertensive urgency; E87.6 Hypokalemia; M40.209 Unspecified kyphosis, site unspecified; Z20.822 Contact with and (suspected) exposure to COVID-19
CPT/HCPCS: 36415; 70450; 70551; 74177; 80048; 80053; 81003; 81015; 82533; 82947; 83036; 83605; 83690; 83735; 84132; 84439; 84443; 84481; 85025; 87040; 87077; 87086; 87088; 87186; 87205; 93306; 96361; 96365; 96375; 97110; 97116; 97162; 97530; 99285; J0360; J1720; J3480; J7030; J7120; Q9967; U0003